=== PATIENT | female | born 1970 | race Caucasian/White ===

== ENCOUNTER 2021-06-11 10:20 | Emergency (ER) | payer BC, MEDICAID ==
[~2021-06-11] VITALS: Ht 172.7 cm; Wt 68.2 kg
[~2021-06-11 10:20] MED LIST: ESOM40CA PO; FLUO20CA39 PO; HYDR-4383 PO; IBUP-1984 PO
[2021-06-11 10:28] VITALS: BP 146/91
[2021-06-11] MEDS ORDERED: proCHLORperazine 10 MG/2 ml inj IM ONE (14:15)
[2021-06-11] MEDS ORDERED: ketorolac trometh inj. 60 MG/2 ML VIAL IM ONE (14:15)
== END 2021-06-11 14:49 | disposition home or self-care (01) ==
LOC: ER 10:21
DX: G43.909 Migraine, unspecified, not intractable, without status migrainosus (principal); G44.89 Other headache syndrome; K21.9 Gastro-esophageal reflux disease without esophagitis; D64.9 Anemia, unspecified; Z88.1 Allergy status to other antibiotic agents; F12.10 Cannabis abuse, uncomplicated; Z56.0 Unemployment, unspecified
CPT/HCPCS: 99281